=== PATIENT | male | born 1955 | race Caucasian/White ===

== ENCOUNTER → 2017-02-24 | Outpatient (CLI) | payer MEDICAID ==
[~2017-02-24] MED LIST: AMIT10TA PO; AMOX1TAB64 PO; FAMO-79 PO; GABA800T2 PO; LISI-170 PO; METH500T97 PO; OXYC5TAB3 PO
== END | disposition home or self-care (01) ==
LOC: CFH 16:02
PROVIDERS: ATTEND Nurse Practitioner
DX: Z12.2 Encounter for screening for malignant neoplasm of respiratory organs (principal); R91.1 Solitary pulmonary nodule; J90 Pleural effusion, not elsewhere classified; I25.10 Atherosclerotic heart disease of native coronary artery without angina pectoris; F17.210 Nicotine dependence, cigarettes, uncomplicated
CPT/HCPCS: G0297

== ENCOUNTER 2017-12-29 06:11 | Inpatient (IN) | payer MEDICAID ==
[~2017-12-29] VITALS: Ht 180.3 cm; Wt 91.6 kg
[2017-12-29] MEDS ORDERED: MORPHINE SULFATE 4 MG/ML, 1ML IVPush PRN (07:00)
[2017-12-29] MEDS ORDERED: SODIUM CHLORIDE FLUSH 10ML SYR IVF ONE (07:00)
[2017-12-29] MEDS ORDERED: ONDANSETRON 2MG/ML, 2ML IVPush ONE (07:00)
[2017-12-29] MEDS ORDERED: SODIUM CHLORIDE 0.9% 1,000ML IVBOLUS ONE (07:00)
[2017-12-29 07:23] LABS: MEAN CORPUSCULAR HEMOGLOBIN 31.3 pg (27.5-34.5); MEAN CORPUSCULAR HGB CONC 33.5 g/dL (33.2-36.2); MEAN CORPUSCULAR VOLUME 93.5 fL (81-97); MEAN PLATELET VOLUME 7.5 fL (7.4-10.4); PLATELET COUNT 341 x10^3/uL (130-400); RED BLOOD COUNT 5.71 x10^6/uL (4.38-5.82); RED CELL DISTRIBUTION WIDTH 14.3 % (9.4-14.8)
[2017-12-29 07:33] LABS: ALANINE AMINOTRANSFERASE 39 U/L (12-78); ALBUMIN 3.7 g/dL (3.4-5.0); ANION GAP 12 mmol/L (5-15); CALCIUM 8.5 mg/dL (8.5-10.1); CHLORIDE 104 mmol/L (98-107)
[2017-12-29 07:35] LABS: ALKALINE PHOSPHATASE 124 U/L (45-117); BILIRUBIN,TOTAL 0.9 mg/dL (0.2-1.0); CREATININE 1.28 mg/dL (0.7-1.3); TOTAL PROTEIN 8.2 g/dL (6.4-8.2)
[2017-12-29 07:44] LABS: INTERNATIONAL NORMALIZED RATIO 1.03 (0.93-1.1); PROTHROMBIN TIME 10.7 Seconds (9.6-11.5)
[2017-12-29 07:46] LABS: MD YES
[2017-12-29 07:48] LABS: BAND#(MANUAL) 2.76 x10^3/uL; BANDS%(MANUAL) 10 % (0-7); LYMPHS% (MANUAL) 4 % (22-44); METAMYELOCYTES# (MANUAL) 0.28 x10^3/uL (0-0); METAMYELOCYTES% (MANUAL) 1 % (0-1); MONOS#(MANUAL) 0.55 x10^3/uL (0.3-2.7); MONOS% (MANUAL) 2 % (2-9); SEG#(MANUAL) 22.91 x10^3/uL (1.8-6.8); SEGS% (MANUAL) 83 % (42-75)
[2017-12-29 07:49] LABS: <PLATELET ESTIMATE> ADEQUATE; <PLT MORPHOLOGY> NORMAL PLT MORPH; <RBC MORPHOLOGY> NORMAL
[2017-12-29 07:50] LABS: TOXIC GRAN 1+
[2017-12-29] MEDS ORDERED: ONDANSETRON 2MG/ML, 2ML ONE (08:20)
[2017-12-29] MEDS ORDERED: morphine SULFATE 10 MG/ML, 1ML ONE (08:20)
[2017-12-29] MEDS ORDERED: BUPR-173 PO (08:29)
[2017-12-29] MEDS ORDERED: ONDA4TAB10 PO (08:30)
[2017-12-29] MEDS ORDERED: BUDE10.2 INH (08:33)
[2017-12-29] MEDS ORDERED: ALBU0.63 NEB (08:33)
[2017-12-29] MEDS ORDERED: TIOT18CA INH (08:33)
[2017-12-29] MEDS ORDERED: OMNIPAQUE 350 MG/ML, 100ML BOTTLE ONE (09:30)
[2017-12-29] MEDS ORDERED: CEFTRIAXONE PMX 1GM/50ML 50 ML ONE (11:15)
[2017-12-29] MEDS ORDERED: CEFTRIAXONE PMX 1GM/50ML 50 ML IV ONE (11:30)
[2017-12-29 11:48] VITALS: BP 110/72
[2017-12-29] MEDS ORDERED: hydrALAzine 20 MG/ML, 1ML IVPush PRN (12:30)
[2017-12-29] MEDS: NICOTINE 7 MG/24 HR PATCH.TD24 TD SCH (12:30)
[2017-12-29] MEDS ORDERED: ONDANSETRON 2MG/ML, 2ML IVPush PRN (12:30)
[2017-12-29] MEDS ORDERED: ALBUTEROL SULFATE 2.5 MG/3 ML NPPB PRN (12:30)
[2017-12-29] MEDS: MORPHINE SULFATE 4 MG/ML, 1ML IVPush PRN ×3 (13:06→22:27)
[2017-12-29] MEDS: ENOXAPARIN 40 MG/0.4 ML SQ SCH (13:06)
[2017-12-29] MEDS: CIPROFLOXACIN/PMX 400MG/200ML 200 ML IV SCH (13:07)
[2017-12-29] MEDS: METRONIDAZOLE PMX 500MG/100ML 100 ML IV SCH ×2 (14:34→22:27)
[2017-12-29 15:01] LABS: MICROSCOPIC NOT IND
[2017-12-29 15:04] LABS: CULTURE INDICATED? NO
[2017-12-29] MEDS: ALBUTEROL/IPRATROPIUM 2.5MG/0.5MG, 3 ML NPPB SCH ×2 (15:30→19:37)
[2017-12-29 15:35] VITALS: BP 108/66
[2017-12-29 18:58] VITALS: BP 109/72
[2017-12-29] MEDS: TEMPLATE NON-FORMULARY MED. (Budesonide/Formoterol Fumarate (Symbicort 160-4.5 Mcg Inhaler INH SCH (22:26)
[2017-12-30] MEDS: CIPROFLOXACIN/PMX 400MG/200ML 200 ML IV SCH ×2 (00:41→14:11)
[2017-12-30 02:45] VITALS: BP 108/74
[2017-12-30 05:09] LABS: BASOPHILS # (AUTO) 0.03 x10^3/uL (0-0.1); BASOPHILS % (AUTO) 0 % (0-1); EOSINOPHILS # (AUTO) 0.24 x10^3/uL (0-0.4); EOSINOPHILS % (AUTO) 2 % (1-7); LYMPHOCYTES # (AUTO) 1.36 x10^3/uL (1-3.4); LYMPHOCYTES % (AUTO) 11 % (22-44); MD NO; MEAN CORPUSCULAR HEMOGLOBIN 31.8 pg (27.5-34.5); MEAN CORPUSCULAR HGB CONC 33.7 g/dL (33.2-36.2); MEAN CORPUSCULAR VOLUME 94.3 fL (81-97); MEAN PLATELET VOLUME 7.6 fL (7.4-10.4); MONOCYTES % (AUTO) 5 % (2-9); NEUTROPHILS # (AUTO) 9.71 x10^3/uL (1.8-6.8); NEUTROPHILS % (AUTO) 81 % (42-75); PLATELET COUNT 268 x10^3/uL (130-400); RED BLOOD COUNT 4.67 x10^6/uL (4.38-5.82); RED CELL DISTRIBUTION WIDTH 14.6 % (9.4-14.8)
[2017-12-30] MEDS: METRONIDAZOLE PMX 500MG/100ML 100 ML IV SCH ×4 (05:17→20:15)
[2017-12-30] MEDS: MORPHINE SULFATE 4 MG/ML, 1ML IVPush PRN ×4 (05:17→20:15)
[2017-12-30 05:19] LABS: CHLORIDE 104 mmol/L (98-107)
[2017-12-30 05:27] LABS: ALANINE AMINOTRANSFERASE 26 U/L (12-78); ALBUMIN 2.8 g/dL (3.4-5.0); ALKALINE PHOSPHATASE 70 U/L (45-117); ANION GAP 6 mmol/L (5-15); BILIRUBIN,TOTAL 1.1 mg/dL (0.2-1.0); CALCIUM 8.1 mg/dL (8.5-10.1); CREATININE 1.02 mg/dL (0.7-1.3); TOTAL PROTEIN 6.3 g/dL (6.4-8.2)
[2017-12-30 07:14] VITALS: BP 118/80
[2017-12-30] MEDS: ALBUTEROL/IPRATROPIUM 2.5MG/0.5MG, 3 ML NPPB SCH ×4 (08:45→19:13)
[2017-12-30] MEDS: TEMPLATE NON-FORMULARY MED. (Tiotropium Bromide** (Spiriva**) 18 MCG) INH SCH (09:00)
[2017-12-30] MEDS: TEMPLATE NON-FORMULARY MED. (Budesonide/Formoterol Fumarate (Symbicort 160-4.5 Mcg Inhaler INH SCH ×2 (09:00→21:00)
[2017-12-30] MEDS: PANTOPRAZOLE 40 MG IV IVPush SCH (09:36)
[2017-12-30] MEDS: NICOTINE 7 MG/24 HR PATCH.TD24 TD SCH (12:30)
[2017-12-30] MEDS: ENOXAPARIN 40 MG/0.4 ML SQ SCH (14:12)
[2017-12-30 20:04] VITALS: BP 113/79
[2017-12-31 01:38] VITALS: BP 109/73
[2017-12-31] MEDS: MORPHINE SULFATE 4 MG/ML, 1ML IVPush PRN ×4 (01:43→20:29)
[2017-12-31] MEDS: CIPROFLOXACIN/PMX 400MG/200ML 200 ML IV SCH ×2 (01:44→14:46)
[2017-12-31] MEDS: METRONIDAZOLE PMX 500MG/100ML 100 ML IV SCH ×3 (04:26→20:29)
[2017-12-31] MEDS: ALBUTEROL/IPRATROPIUM 2.5MG/0.5MG, 3 ML NPPB SCH ×4 (07:15→21:30)
[2017-12-31 09:00] VITALS: BP 110/74
[2017-12-31] MEDS: TEMPLATE NON-FORMULARY MED. (Tiotropium Bromide** (Spiriva**) 18 MCG) INH SCH (09:00)
[2017-12-31] MEDS: TEMPLATE NON-FORMULARY MED. (Budesonide/Formoterol Fumarate (Symbicort 160-4.5 Mcg Inhaler INH SCH ×2 (09:00→20:29)
[2017-12-31] MEDS: PANTOPRAZOLE 40 MG IV IVPush SCH (09:29)
[2017-12-31] MEDS: ENOXAPARIN 40 MG/0.4 ML SQ SCH (12:19)
[2017-12-31] MEDS: NICOTINE 7 MG/24 HR PATCH.TD24 TD SCH (12:19)
[2017-12-31 12:45] VITALS: BP 113/75
[2017-12-31 19:09] VITALS: BP 109/75
[2018-01-01 01:31] VITALS: BP 118/78
[2018-01-01] MEDS: CIPROFLOXACIN/PMX 400MG/200ML 200 ML IV SCH ×2 (02:13→15:01)
[2018-01-01] MEDS: MORPHINE SULFATE 4 MG/ML, 1ML IVPush PRN ×2 (03:15→08:23)
[2018-01-01] MEDS: METRONIDAZOLE PMX 500MG/100ML 100 ML IV SCH ×2 (05:05→12:45)
[2018-01-01 05:54] LABS: CHLORIDE 107 mmol/L (98-107)
[2018-01-01 06:03] LABS: ANION GAP 6 mmol/L (5-15); CREATININE 0.93 mg/dL (0.7-1.3)
[2018-01-01 06:15] LABS: BASOPHILS # (AUTO) 0.02 x10^3/uL (0-0.1); BASOPHILS % (AUTO) 0 % (0-1); EOSINOPHILS # (AUTO) 0.21 x10^3/uL (0-0.4); EOSINOPHILS % (AUTO) 3 % (1-7); LYMPHOCYTES % (AUTO) 14 % (22-44); MD NO; MEAN CORPUSCULAR HEMOGLOBIN 31.7 pg (27.5-34.5); MEAN CORPUSCULAR HGB CONC 33.7 g/dL (33.2-36.2); MEAN CORPUSCULAR VOLUME 94.1 fL (81-97); MEAN PLATELET VOLUME 7.4 fL (7.4-10.4); MONOCYTES % (AUTO) 7 % (2-9); NEUTROPHILS % (AUTO) 75 % (42-75); PLATELET COUNT 238 x10^3/uL (130-400); RED BLOOD COUNT 4.35 x10^6/uL (4.38-5.82); RED CELL DISTRIBUTION WIDTH 14.2 % (9.4-14.8)
[2018-01-01] MEDS: ALBUTEROL/IPRATROPIUM 2.5MG/0.5MG, 3 ML NPPB SCH ×2 (07:15→11:00)
[2018-01-01 08:09] VITALS: BP 115/78
[2018-01-01] MEDS: PANTOPRAZOLE 40 MG IV IVPush SCH (08:19)
[2018-01-01] MEDS: TEMPLATE NON-FORMULARY MED. (Budesonide/Formoterol Fumarate (Symbicort 160-4.5 Mcg Inhaler INH SCH (09:00)
[2018-01-01] MEDS: TEMPLATE NON-FORMULARY MED. (Tiotropium Bromide** (Spiriva**) 18 MCG) INH SCH (09:00)
[2018-01-01] MEDS ORDERED: SENNOSIDES 8.6 MG TABLET PO SCH (10:30)
[2018-01-01] MEDS ORDERED: ACETAMINOPHEN 325 MG TABLET PO PRN (10:30)
[2018-01-01] MEDS: ENOXAPARIN 40 MG/0.4 ML SQ SCH (12:45)
[2018-01-01] MEDS: NICOTINE 7 MG/24 HR PATCH.TD24 TD SCH (12:45)
[2018-01-01 15:18] VITALS: BP 104/68
[2018-01-02] MEDS ORDERED: ALBUTEROL/IPRATROPIUM 2.5MG/0.5MG, 3 ML NPPB PRN (07:00)
[2018-01-02] MEDS ORDERED: PANTOPROZOLE 40MG TABLET PO SCH (07:30)
== END 2018-01-01 19:00 | disposition left against medical advice (07) | DRG 389 ==
LOC: ED 07:26 → EDIP 10:06 → 4WST 11:40
PROVIDERS: ADMIT Internal Medicine; ATTEND Internal Medicine
DX: K56.600 Partial intestinal obstruction, unspecified as to cause (principal); J96.11 Chronic respiratory failure with hypoxia; D72.829 Elevated white blood cell count, unspecified; E86.0 Dehydration; F17.200 Nicotine dependence, unspecified, uncomplicated; Z53.21 Procedure and treatment not carried out due to patient leaving prior to being seen by health care provider; I10 Essential (primary) hypertension; J44.9 Chronic obstructive pulmonary disease, unspecified; Z86.73 Personal history of transient ischemic attack (TIA), and cerebral infarction without residual deficits; Z98.1 Arthrodesis status; Z87.891 Personal history of nicotine dependence
CPT/HCPCS: 36415; 74177; 74250; 80048; 80053; 81003; 83605; 83690; 83735; 84100; 85025; 85610; 87040; 93005; 94640; 96361; 96374; 96375; J0696; J0744; J1650; J2405; J7613; J7620; Q9967; C9113; J7030

== ENCOUNTER 2018-03-09 03:48 | Emergency (ER) | payer MEDICAID ==
[~2018-03-09] VITALS: Ht 180.3 cm; Wt 89.2 kg
[~2018-03-09 03:48] MED LIST changes: +ALBU0.63 NEB; +BUDE10.2 INH; +BUPR-173 PO; +ONDA4TAB10 PO; +TIOT18CA INH
[2018-03-09] MEDS ORDERED: MORPHINE SULFATE 4 MG/ML, 1ML ONE (04:17)
[2018-03-09] MEDS ORDERED: PROMETHAZINE 25 MG/ML, 1ML ONE (04:17)
[2018-03-09] MEDS ORDERED: SODIUM CHLORIDE FLUSH 10ML SYR IVF ONE (04:30)
[2018-03-09] MEDS ORDERED: MORPHINE SULFATE 4 MG/ML, 1ML IVPush PRN (04:30)
[2018-03-09] MEDS ORDERED: PROMETHAZINE 25 MG/ML, 1ML IM ONE (04:30)
[2018-03-09] MEDS ORDERED: SODIUM CHLORIDE 0.9% 1,000ML IVBOLUS ONE (04:30)
[2018-03-09] MEDS ORDERED: TRAZ50TA18 PO (05:02)
[2018-03-09 05:15] LABS: TROPONIN I < 0.015 ng/mL (0.000-0.045)
[2018-03-09 05:20] LABS: BASOPHILS % (AUTO) 0 % (0-1); EOSINOPHILS # (AUTO) 0.16 x10^3/uL (0-0.4); EOSINOPHILS % (AUTO) 2 % (1-7); LYMPHOCYTES # (AUTO) 0.46 x10^3/uL (1-3.4); LYMPHOCYTES % (AUTO) 5 % (22-44); MD NO; MEAN CORPUSCULAR HGB CONC 34.3 g/dL (33.2-36.2); MEAN CORPUSCULAR VOLUME 93.4 fL (81-97); MEAN PLATELET VOLUME 8.4 fL (7.4-10.4); MONOCYTES # (AUTO) 1.03 x10^3/uL (0.2-0.8); MONOCYTES % (AUTO) 10 % (2-9); NEUTROPHILS # (AUTO) 8.67 x10^3/uL (1.8-6.8); NEUTROPHILS % (AUTO) 84 % (42-75); PLATELET COUNT 241 x10^3/uL (130-400); RED BLOOD COUNT 5.11 x10^6/uL (4.38-5.82); RED CELL DISTRIBUTION WIDTH 14.2 % (9.4-14.8)
[2018-03-09 06:23] LABS: ALANINE AMINOTRANSFERASE 15 U/L (12-78); ANION GAP 10 mmol/L (5-15); CALCIUM 7.5 mg/dL (8.5-10.1); CHLORIDE 106 mmol/L (98-107); CREATININE 0.95 mg/dL (0.7-1.3)
[2018-03-09 06:25] LABS: ALKALINE PHOSPHATASE 81 U/L (45-117); BILIRUBIN,TOTAL 0.9 mg/dL (0.2-1.0); TOTAL PROTEIN 6.1 g/dL (6.4-8.2)
[2018-03-09 06:53] LABS: MICROSCOPIC NOT IND
[2018-03-09 06:55] LABS: CULTURE INDICATED? NO
[2018-03-09 07:30] VITALS: BP 110/84
== END 2018-03-09 09:01 | disposition home or self-care (01) ==
LOC: ED 07:20
DX: K52.9 Noninfective gastroenteritis and colitis, unspecified (principal); J44.9 Chronic obstructive pulmonary disease, unspecified; I10 Essential (primary) hypertension; F17.210 Nicotine dependence, cigarettes, uncomplicated
CPT/HCPCS: 36415; 74021; 76700; 80053; 81003; 83690; 84484; 85025; 93005; 96361; 96372; 96374; 99285; J2550; J7030

== ENCOUNTER 2018-04-23 04:33 | Emergency (ER) | payer MEDICAID ==
[~2018-04-23] VITALS: Ht 180.3 cm; Wt 90.0 kg
[~2018-04-23 04:33] MED LIST changes: +TRAZ50TA18 PO
[2018-04-23 04:34] VITALS: BP 140/95
[2018-04-23] MEDS ORDERED: KETOROLAC 30 MG/1 ML IM ONE (05:00)
[2018-04-23] MEDS ORDERED: ONDANSETRON ODT 4 MG PO ONE (05:00)
[2018-04-23] MEDS ORDERED: METHOCARBAMOL 750 MG TABLET PO ONE (05:00)
[2018-04-23] MEDS ORDERED: HYDROcodone/APAP 5/325 TABLET PO ONE (05:00)
[2018-04-23] MEDS ORDERED: ONDANSETRON ODT 4 MG ONE (05:04)
[2018-04-23] MEDS ORDERED: HYDROcodone/APAP 5/325 TABLET ONE (05:04)
[2018-04-23] MEDS ORDERED: KETOROLAC 30 MG/1 ML ONE (05:04)
[2018-04-23] MEDS ORDERED: METHOCARBAMOL 750 MG TABLET ONE (05:04)
[2018-04-23 06:17] LABS: MICROSCOPIC NOT IND
[2018-04-23 06:18] LABS: CULTURE INDICATED? NO
== END 2018-04-23 07:24 | disposition home or self-care (01) ==
LOC: ED 07:20
DX: M54.41 Lumbago with sciatica, right side (principal); K21.9 Gastro-esophageal reflux disease without esophagitis; J44.9 Chronic obstructive pulmonary disease, unspecified; I10 Essential (primary) hypertension; Z86.73 Personal history of transient ischemic attack (TIA), and cerebral infarction without residual deficits; Z87.891 Personal history of nicotine dependence
CPT/HCPCS: 72110; 73502; 81003; 96372; 99285; J1885; Q0162

== ENCOUNTER 2020-07-12 06:05 | Inpatient (IN) | payer MEDICARE, MEDICAID ==
[~2020-07-12] VITALS: Ht 180.3 cm; Wt 97.9 kg
[~2020-07-12 06:05] MED LIST changes: +AZIT250T PO; +BUPR300T94 PO; -GABA800T2 PO; +GABA800T5 PO; +LOPE2CAP3 PO; +ONDA-89 PO; +PANT20TA4 PO; -TRAZ50TA18 PO; +TRAZ50TA66 PO
--- NOTE | 2020-07-12 06:25 | NUR ---
PT CAME INTO ED TODAY DUE TO INCREASING SHOULDER PAIN ON THE RIGHT SIDE, STATES IT HAS BEEN WORSENING OVER THE PAST FEW WEEKS, INCREASES UPON ROTATION. PT HAS LIMITED RANGE OF MOTION DUE TO PAIN, NO OBVIOUS DEFORMITIES NOTED, CMS INTACT. PT ALSO REPORTS NO BM FOR 2 DAYS. STATES HE HAS ABDOMINAL PAIN AND DISCOMFORT, DENIES NAUSEA OR VOMITTING. WCTM. PT PLACED ON SPO2/BP/ECG MONITORING. VSS.
--- NOTE | 2020-07-12 06:31 | NUR ---
LAW KURTZ AT FOR EVAL AND POC. PT RESTING ON JESSE ROSAS WCTM.
[2020-07-12] MEDS ORDERED: KETOROLAC 30 MG/1 ML ONE (06:44)
[2020-07-12] MEDS ORDERED: KETOROLAC 30 MG/1 ML IM ONE (07:00)
--- NOTE | 2020-07-12 07:03 | NUR ---
BEDSIDE REPORT RECIEVED, ASSUMED CARE OF PT AT THIS TIME. PT RESTING ON GURNEY AT THIS TIME. VSS, NO NEEDS VERBALIZED AT THIS TIME
[2020-07-12 07:38] LABS: MEAN CORPUSCULAR HEMOGLOBIN 31.1 pg (27.5-34.5); MEAN CORPUSCULAR HGB CONC 33.4 g/dL (33.2-36.2); MEAN PLATELET VOLUME 7.2 fL (7.4-10.4); PLATELET COUNT 168 x10^3/uL (130-400); RED BLOOD COUNT 4.34 x10^6/uL (4.38-5.82); RED CELL DISTRIBUTION WIDTH 14.3 % (9.4-14.8)
[2020-07-12 07:45] LABS: ALBUMIN 2.9 g/dL (3.4-5.0); ANION GAP 5 mmol/L (5-15); CALCIUM 8.1 mg/dL (8.5-10.1); CHLORIDE 101 mmol/L (98-107); CREATININE 1.19 mg/dL (0.7-1.3)
[2020-07-12 07:56] LABS: MD YES
[2020-07-12] MEDS ORDERED: methylPREDNISolone SOD SUCC 125 MG/2 ML IV ONE (08:00)
[2020-07-12 08:04] LABS: BAND#(MANUAL) 1.18 x10^3/uL; BANDS%(MANUAL) 7 % (0-7); LYMPH#(MANUAL) 1.51 x10^3/uL (1-3.4); LYMPHS% (MANUAL) 9 % (22-44); MONOS#(MANUAL) 0.34 x10^3/uL (0.3-2.7); MONOS% (MANUAL) 2 % (2-9); SEG#(MANUAL) 13.78 x10^3/uL (1.8-6.8); SEGS% (MANUAL) 82 % (42-75)
[2020-07-12 08:05] LABS: <PLATELET ESTIMATE> ADEQUATE; <PLT MORPHOLOGY> NORMAL PLT MORPH; <RBC MORPHOLOGY> NORMAL
--- NOTE | 2020-07-12 08:18 | NUR ---
PIV EJ INITIATED, PT APPEARS DIAPHORETIC, STATES "IM FEELING OK", BP 93/64, ERMD UPDATED. AT BEDSIDE. WILL CTM
[2020-07-12] MEDS ORDERED: methylPREDNISolone SOD SUCC 125 MG/2 ML ONE (08:23)
--- NOTE | 2020-07-12 08:28 | NUR ---
BOLUS ORDER OBTAINED. PT MEETS [facility] CRITERIA
[2020-07-12] MEDS ORDERED: DOXYCYCLINE 100 MG in DEXTROSE 5% 250 ML IV ONE (08:30)
[2020-07-12] MEDS ORDERED: SODIUM CHLORIDE 0.9% 1,000ML IVBOLUS ONE ×3 (08:30→10:00)
[2020-07-12] MEDS ORDERED: CEFTRIAXONE PMX 2GM/50ML 50 ML IV ONE (08:30)
[2020-07-12] MEDS ORDERED: CEFTRIAXONE PMX 1GM/50ML 50 ML ONE (08:39)
[2020-07-12] MEDS ORDERED: CEFTRIAXONE PMX 2GM/50ML 50 ML ONE (08:40)
--- NOTE | 2020-07-12 09:23 | NUR ---
TASK RN: AWARE OF CURRENT BLOOD PRESSURE. ORDERS RECEIVED FOR 2 LITER BOLUS AND STARTED NOTED ON DEC.
--- NOTE | 2020-07-12 09:55 | NUR ---
PT TO IMAGING AT THIS TIME, REPORT TO GUS REYNOLDS
[2020-07-12] MEDS ORDERED: OXYcodone IR 5MG TABLET PO PRN (10:00)
[2020-07-12] MEDS ORDERED: KETOROLAC 30 MG/1 ML IM PRN (10:00)
[2020-07-12] MEDS ORDERED: ACETAMINOPHEN 325 MG TABLET PO PRN (10:00)
[2020-07-12] MEDS: CEFTRIAXONE PMX 2GM/50ML 50 ML IV SCH (10:00)
[2020-07-12] MEDS ORDERED: KETOROLAC 30 MG/1 ML IV PRN (10:00)
[2020-07-12] MEDS ORDERED: LISINOPRIL 20 MG TABLET PO SCH (10:00)
[2020-07-12] MEDS: SENNA/DOCUSATE TABLET PO SCH (10:00)
[2020-07-12] MEDS ORDERED: ONDANSETRON 4 MG TABLET PO PRN (10:00)
[2020-07-12] MEDS ORDERED: BISACODYL 10 MG SUPP PR PRN (10:00)
--- NOTE | 2020-07-12 10:10 | NUR ---
ASSUMED CARE OF PT FROM RODOLFO LEA. PER RODOLFO LEA DOXYCYCLINE STOPPED DUE TO PRIORITIZING NS BOLUS GOING IN. PT'S 3RD NS BOLUS RUNNING THROUGH EJ CURRENTLY.
--- NOTE | 2020-07-12 10:35 | NUR ---
PIV STARTED BY RODOLFO CHOPRA. DOXYCYCLINE STARTED THROUGH THIS LINE.
--- NOTE | 2020-07-12 10:55 | NUR ---
PT 3RD NS BOLUS FINISHED. FIRST BP AFTER BOLUS FINISHED WAS 90/58 AT 1039. SECOND BP WAS 83/65 AT 1050.
[2020-07-12] MEDS ORDERED: ALBUTEROL SULFATE 2.5 MG/3 ML NPPB PRN (13:00)
[2020-07-12] MEDS: METHOCARBAMOL 500 MG TABLET PO SCH ×3 (13:18→21:27)
[2020-07-12] MEDS: SODIUM CHLORIDE 0.9% 1,000 ML IV SCH (13:20)
[2020-07-12] MEDS: HEPARIN 5,000 UNITS/ML, 1ML SQ SCH ×2 (13:20→21:27)
[2020-07-12 13:30] VITALS: BP 96/67
[2020-07-12] MEDS: GABAPENTIN 400 MG CAPSULE PO SCH ×2 (18:19→21:27)
[2020-07-12] MEDS: LACTOBACILLUS CHEW TABLET PO SCH ×2 (18:19→21:27)
[2020-07-12 19:30] VITALS: BP 109/73
[2020-07-12] MEDS: BUPROPION SR 150 MG TABLET PO SCH (21:27)
[2020-07-12] MEDS: TRAZODONE 50MG TABLET PO SCH (21:27)
[2020-07-12] MEDS: ATORVASTATIN 40 MG TABLET PO SCH (21:27)
[2020-07-13] MEDS: SODIUM CHLORIDE 0.9% 1,000 ML IV SCH (00:45)
[2020-07-13 00:47] VITALS: BP 144/88
[2020-07-13] MEDS: ASPIRIN 81 MG TABLET EC PO SCH (05:13)
[2020-07-13] MEDS: HEPARIN 5,000 UNITS/ML, 1ML SQ SCH ×2 (05:13→20:56)
[2020-07-13 06:24] LABS: ANION GAP 8 mmol/L (5-15); CALCIUM 8.4 mg/dL (8.5-10.1); CHLORIDE 106 mmol/L (98-107)
[2020-07-13 06:41] LABS: BASOPHILS % (AUTO) 0 % (0-1); EOSINOPHILS % (AUTO) 0 % (1-7); LYMPHOCYTES # (AUTO) 0.71 x10^3/uL (1-3.4); LYMPHOCYTES % (AUTO) 3 % (22-44); MD SCAN; MEAN CORPUSCULAR HEMOGLOBIN 30.8 pg (27.5-34.5); MEAN CORPUSCULAR HGB CONC 32.9 g/dL (33.2-36.2); MONOCYTES # (AUTO) 0.78 x10^3/uL (0.2-0.8); MONOCYTES % (AUTO) 3 % (2-9); NEUTROPHILS # (AUTO) 21.61 x10^3/uL (1.8-6.8); NEUTROPHILS % (AUTO) 94 % (42-75); PLATELET COUNT 155 x10^3/uL (130-400); RED BLOOD COUNT 4.37 x10^6/uL (4.38-5.82); RED CELL DISTRIBUTION WIDTH 14.4 % (9.4-14.8)
[2020-07-13 08:18] VITALS: BP 104/72
[2020-07-13] MEDS: LACTOBACILLUS CHEW TABLET PO SCH ×3 (08:35→20:56)
[2020-07-13] MEDS: SENNA/DOCUSATE TABLET PO SCH (08:35)
[2020-07-13] MEDS: METHOCARBAMOL 500 MG TABLET PO SCH ×3 (08:35→20:56)
[2020-07-13] MEDS: GABAPENTIN 400 MG CAPSULE PO SCH ×3 (08:35→20:56)
[2020-07-13] MEDS: PANTOPRAZOLE 20MG TABLET PO SCH (08:35)
[2020-07-13] MEDS: BUPROPION SR 150 MG TABLET PO SCH ×2 (08:35→20:56)
[2020-07-13] MEDS: CEFTRIAXONE PMX 2GM/50ML 50 ML IV SCH (08:36)
[2020-07-13] MEDS: FLUTICASONE/VILANTEROL 100-25MCG/INH INH SCH (09:05)
[2020-07-13] MEDS: TIOTROPIUM BROMIDE 18 MCG/INH INH SCH (09:05)
[2020-07-13] MEDS: AZITHROMYCIN 500 MG in SODIUM CHLORIDE 0.9% 250 ML IV SCH (10:37)
[2020-07-13 15:25] VITALS: BP 100/68
[2020-07-13 18:40] VITALS: BP 118/74
[2020-07-13] MEDS: ATORVASTATIN 40 MG TABLET PO SCH (20:56)
[2020-07-13] MEDS: TRAZODONE 50MG TABLET PO SCH (20:56)
[2020-07-14 00:52] VITALS: BP 115/75
[2020-07-14] MEDS: ASPIRIN 81 MG TABLET EC PO SCH (05:08)
[2020-07-14 05:50] LABS: MEAN CORPUSCULAR HEMOGLOBIN 30.8 pg (27.5-34.5); MEAN CORPUSCULAR HGB CONC 32.8 g/dL (33.2-36.2); MEAN PLATELET VOLUME 8.1 fL (7.4-10.4); PLATELET COUNT 160 x10^3/uL (130-400); RED CELL DISTRIBUTION WIDTH 14.2 % (9.4-14.8)
[2020-07-14 06:19] LABS: BASOPHILS % (AUTO) 0 % (0-1); EOSINOPHILS # (AUTO) 0.03 x10^3/uL (0-0.4); EOSINOPHILS % (AUTO) 0 % (1-7); LYMPHOCYTES # (AUTO) 0.65 x10^3/uL (1-3.4); LYMPHOCYTES % (AUTO) 6 % (22-44); MD SCAN; MONOCYTES # (AUTO) 0.49 x10^3/uL (0.2-0.8); MONOCYTES % (AUTO) 4 % (2-9); NEUTROPHILS # (AUTO) 10.22 x10^3/uL (1.8-6.8); NEUTROPHILS % (AUTO) 90 % (42-75)
[2020-07-14 07:39] VITALS: BP 113/72
[2020-07-14] MEDS: HEPARIN 5,000 UNITS/ML, 1ML SQ SCH (08:09)
[2020-07-14] MEDS: METHOCARBAMOL 500 MG TABLET PO SCH ×2 (08:09→16:00)
[2020-07-14] MEDS: BUPROPION SR 150 MG TABLET PO SCH (08:09)
[2020-07-14] MEDS: GABAPENTIN 400 MG CAPSULE PO SCH ×2 (08:09→16:00)
[2020-07-14] MEDS: SENNA/DOCUSATE TABLET PO SCH (08:09)
[2020-07-14] MEDS: PANTOPRAZOLE 20MG TABLET PO SCH (08:09)
[2020-07-14] MEDS: LACTOBACILLUS CHEW TABLET PO SCH ×2 (08:10→16:00)
[2020-07-14] MEDS: CEFTRIAXONE PMX 2GM/50ML 50 ML IV SCH (08:11)
[2020-07-14] MEDS: TIOTROPIUM BROMIDE 18 MCG/INH INH SCH (08:32)
[2020-07-14] MEDS: FLUTICASONE/VILANTEROL 100-25MCG/INH INH SCH (08:32)
[2020-07-14] MEDS: AZITHROMYCIN 500 MG in SODIUM CHLORIDE 0.9% 250 ML IV SCH (10:02)
[2020-07-14] MEDS ORDERED: ALBUTEROL HFA 90 MCG/SPRAY INH PRN (11:30)
[2020-07-14] MEDS ORDERED: ASPI81TA45 PO (12:07)
[2020-07-14] MEDS ORDERED: ATOR40TA78 PO (12:07)
[2020-07-14] MEDS ORDERED: CEFD300C37 PO (12:07)
[2020-07-14] MEDS ORDERED: AZIT500T PO (12:07)
[2020-07-14 13:20] VITALS: BP 125/70
== END 2020-07-14 16:10 | disposition home or self-care (01) | DRG 871 ==
LOC: ED 06:27 → EDIP 08:41 → 3N 12:22 → DCLOUNGE 07-14 16:00
PROVIDERS: ADMIT Internal Medicine; ATTEND Hospitalist
DX: A41.9 Sepsis, unspecified organism (principal); J15.6 Pneumonia due to other Gram-negative bacteria; J96.91 Respiratory failure, unspecified with hypoxia; J44.0 Chronic obstructive pulmonary disease with (acute) lower respiratory infection; G62.9 Polyneuropathy, unspecified; E66.9 Obesity, unspecified; G89.29 Other chronic pain; K21.9 Gastro-esophageal reflux disease without esophagitis; I95.9 Hypotension, unspecified; M54.2 Cervicalgia; K59.00 Constipation, unspecified; Z68.30 Body mass index [BMI] 30.0-30.9, adult; Z86.73 Personal history of transient ischemic attack (TIA), and cerebral infarction without residual deficits; M19.011 Primary osteoarthritis, right shoulder
CPT/HCPCS: 36415; 74022; 80048; 82040; 83605; 84145; 85025; 87040; 93005; 94640; 94664; 96365; 96372; 96375; G0378; J0456; J0696; J1644; J1885; J7060; J2930; J7030; J7050